=== PATIENT | male | born 1990 | race Hispanic/Latino ===

== ENCOUNTER 2017-05-10 21:50 | Emergency (ER) | payer OTHER ==
[2017-05-10] MEDS ORDERED: TETANUS/DIPHTHERIA TOXOID [ADULT] 0.5 ML VIAL IM ONE (22:52)
== END 2017-05-10 23:20 | disposition home or self-care (01) ==
LOC: EDH 21:50
DX: S01.01XA Laceration without foreign body of scalp, initial encounter (principal); G40.909 Epilepsy, unspecified, not intractable, without status epilepticus; Z79.899 Other long term (current) drug therapy; X58.XXXA Exposure to other specified factors, initial encounter; Y93.89 Activity, other specified; Y92.69 Other specified industrial and construction area as the place of occurrence of the external cause; Y99.8 Other external cause status
CPT/HCPCS: 12002; 90471; 90714

== ENCOUNTER 2019-01-12 23:49 | Emergency (ER) | payer OTHER ==
[2019-01-13] MEDS ORDERED: LIDOCAINE HCL 1% 20 ML VIAL ONE (00:34)
[2019-01-13] MEDS ORDERED: TETANUS/DIPHTHERIA TOXOID [ADULT] 0.5 ML VIAL IM ONE (00:44)
[2019-01-13] MEDS ORDERED: ACETAMINOPHEN EXTRA STRENGTH 500 MG TABLET ONE (01:35)
[2019-01-13] MEDS ORDERED: IBUPROFEN 600 MG TABLET ONE (01:35)
[2019-01-13] MEDS ORDERED: LEVETIRACETAM 500 MG TABLET PO ONE (01:36)
== END 2019-01-13 01:43 | disposition home or self-care (01) ==
LOC: EDH 23:49
DX: S81.812A Laceration without foreign body, left lower leg, initial encounter (principal); Z72.0 Tobacco use; W22.8XXA Striking against or struck by other objects, initial encounter; Y93.89 Activity, other specified; Y92.89 Other specified places as the place of occurrence of the external cause; Y99.8 Other external cause status
CPT/HCPCS: 12002; 73562; 73590; 90471; 90714

== ENCOUNTER 2019-04-08 17:18 | Emergency (ER) | payer OTHER ==
[2019-04-08] MEDS ORDERED: LEVETIRACETAM 500 MG TABLET PO ONE (17:34)
[2019-04-08] MEDS ORDERED: SODIUM CHLORIDE 0.9% 1000ML 1,000 ML IV ONE (17:34)
== END 2019-04-08 18:16 | disposition left against medical advice (07) ==
LOC: EDH 17:18
DX: G40.909 Epilepsy, unspecified, not intractable, without status epilepticus (principal); F12.10 Cannabis abuse, uncomplicated; Z72.0 Tobacco use
CPT/HCPCS: 99284; J7030

== ENCOUNTER 2020-03-16 22:06 | Emergency (ER) | payer OTHER | END 2020-03-16 22:43 | disposition home or self-care (01) | LOC: EDH 22:06 | DX: F32.89 Other specified depressive episodes (principal); F41.9 Anxiety disorder, unspecified; F43.0 Acute stress reaction ==